=== PATIENT | female | born 1950 | race Caucasian/White ===

== ENCOUNTER → 2018-09-09 07:55 | Outpatient (CLI) | payer MEDICARE, OTHER, SELFPAY ==
--- NOTE | 2018-09-09 08:10 | DI.CT.S_ITS ---
PROCEDURE: CT CHEST ABD PEL W CON INDICATIONS: Abnormal weight loss TECHNIQUE: After the administration of oral and intravenous contrast, 5 mm thick sections acquired from the lung apices to the symphysis. 5 mm coronal and sagittal reformats were performed, with additional 7 mm coronal MIP reformats through the lungs. For radiation dose reduction, the following was used: automated exposure control, adjustment of mA and/or kV according to patient size. COMPARISON: None. FINDINGS: Image quality: Excellent. CHEST: Lungs and pleura: There is subpleural scarring in the lung apices. There are multiple small peripheral subpleural nodules bilaterally with the largest measuring up to approximately 3 mm. No pleural effusions or pneumothorax. Central and peripheral airways appear patent and normal in caliber. Mediastinum: Heart size is normal. No pericardial effusion. No mediastinal or hilar adenopathy by size criteria. Thoracic aorta and central pulmonary arteries are normal in size. Esophagus is normal in caliber. No hiatal hernia. Chest wall: No axillary or supraclavicular adenopathy by size criteria. Thyroid gland demonstrates no discrete nodules. ABDOMEN: Solid organs: There is a cyst peripherally in the right hepatic lobe measuring up to 2.8 cm. There are a few small additional hypodense foci within the liver which are too small to characterize but likely represent cysts. The gallbladder appears within normal limits without calcified gallstones. Biliary system is non-dilated. Pancreas enhances normally. No peripancreatic fat stranding or fluid collections. No pancreatic duct dilatation. The spleen is normal in size. No adrenal nodules. Kidneys demonstrate no hydronephrosis. 3 small bilateral renal cysts. Peritoneum and bowel: There is mild segmental wall thickening in the terminal ileum with minimal fat stranding. Bowel loops otherwise demonstrate normal wall thickness and caliber. The appendix is normal in appearance. No free fluid or air. Nodes and vessels: No retroperitoneal or mesenteric adenopathy by size criteria. Aorta and inferior vena cava are normal in size. Miscellaneous: No ventral hernias. PELVIS: Genitourinary: Bladder wall thickness is normal. Miscellaneous: No inguinal hernias or adenopathy. Bones: No suspicious bony lesions. No vertebral body compression fractures. IMPRESSION: 1. Mild segmental wall thickening in the terminal ileum without associated obstruction. The findings are suggestive of a mild enteritis secondary to infection such as from Yersinia or inflammation such as from inflammatory bowel disease. Recommend correlation clinically. 2. Scattered small bilateral subpleural nodules measuring up to 3 mm. The findings are nonspecific and likely represent a mild infectious or inflammatory process. Dictated by: Ari Zhao M.D. on 09/09/2018 at 11:54 Approved by: Ari Zhao M.D. on 09/09/2018 at 12:11
== END ==
PROVIDERS: Family Provider Family Medicine; PCP Family Medicine; Visit Provider Family Medicine
DX: R63.4 Abnormal weight loss (principal); N13.30 Unspecified hydronephrosis; N28.1 Cyst of kidney, acquired
CPT/HCPCS: 71260; 74177; Q9967

== ENCOUNTER → 2018-09-28 12:30 | Outpatient (CLI) | payer MEDICARE, OTHER, SELFPAY | PROVIDERS: PCP Family Medicine; Visit Provider Family Medicine | DX: Z78.0 Asymptomatic menopausal state (principal); M85.89 Other specified disorders of bone density and structure, multiple sites; M89.9 Disorder of bone, unspecified; M85.88 Other specified disorders of bone density and structure, other site | CPT/HCPCS: 77080 ==

== ENCOUNTER → 2022-04-30 09:51 | Outpatient (CLI) | payer MEDICARE, OTHER, SELFPAY ==
--- NOTE | 2022-04-30 | DI.RAD.S_ITS ---
PROCEDURE: XR LUMBAR SPINE 2-3V INDICATIONS: Other low back pain TECHNIQUE: 3 views of the lumbar spine were acquired. COMPARISON: None. FINDINGS: Bones: Normal bone mineralization. Disc space narrowing hypertrophic facet joints present throughout the exam, particularly in the lower lumbar spine. Grade 2 anterior spondylolisthesis present at L4-5 Soft tissues: Overlying bowel gas pattern is normal. No suspicious soft tissue calcifications. IMPRESSION: Degenerative grade 2 anterior spondylolisthesis L4-5 Degenerative disc disease and arthropathy Approved by: Kwaku Mackey M.D. on 04/30/2022 at 12:10
== END ==
PROVIDERS: PCP Family Medicine; Referring Provider Family Medicine; Visit Provider Family Medicine
DX: M43.16 Spondylolisthesis, lumbar region (principal); M47.816 Spondylosis without myelopathy or radiculopathy, lumbar region; M51.36 Other intervertebral disc degeneration, lumbar region; M54.59 Other low back pain
CPT/HCPCS: 72100

== ENCOUNTER → 2022-12-06 12:50 | Outpatient (CLI) | payer MEDICARE, OTHER, SELFPAY ==
--- NOTE | 2022-12-06 12:52 | DI.CT.S_ITS ---
PROCEDURE: CT ABDOMEN PELVIS W CON INDICATIONS: Epigastric pain// TECHNIQUE: After the administration of oral and intravenous contrast, axial sections were acquired from the lung bases to the pubic symphysis. Coronal and sagittal reformats were performed. For radiation dose reduction, the following was used: automated exposure control, adjustment of mA and/or kV according to patient size. COMPARISON:[facility], CT, CT CHEST ABD PEL W CON, 09/09/2018, 9:11. FINDINGS: Image quality: Good Lower chest: Scattered scarring and atelectasis. Small hiatal hernia. Mild hyperemia of the distal esophageal mucosa. Solid organs: A right lobe liver cyst is again seen. Subcentimeter lesions are too small to characterize, probably also cysts. Gallbladder is unremarkable. No pathologic dilation of the biliary system or pancreatic duct. No splenomegaly. No adrenal nodules. Bosniak 1 and 2 renal lesions are present, for which no dedicated followup is necessary per 2019 proposed guidelines. No hydronephrosis. Vessels and lymph nodes: The main portal vein is patent. No abdominal aortic aneurysm. No pathologic lymph nodes by size criteria. Bowel and peritoneum: Moderate fecal loading. No small bowel obstruction. No pathologic ascites. No drainable abscess. Mild gastric wall thickening. Body wall: Tiny fat containing umbilical hernia. Pelvis: Reproductive organs appear physiologic, but are not well evaluated on CT. Bladder is unremarkable. Bones: Degenerative changes, no acute or suspicious osseous finding. Small bone lesions with sclerotic appearance, probably bone islands. Lower lumbar anterolisthesis again seen. IMPRESSION: Possible mild gastric wall thickening, probably infectious or inflammatory gastritis. Possible small hiatal hernia and distal esophageal hyperemia, most commonly reflux esophagitis. Consider endoscopic correlation if needed. Otherwise, no acute abdominal pelvic abnormality. Other findings as above. Dictated by: Roel Ryan M.D. on 12/06/2022 at 15:24 Approved by: Roel Ryan M.D. on 12/06/2022 at 15:30
[2022-12-06 13:18] LABS: Estimated Glomerular Filt Rate > 60 mL/min (>60)
== END ==
PROVIDERS: Radiology Diagnostic Radiology; PCP Family Medicine; Referring Provider Family Medicine; Visit Provider Family Medicine
DX: R10.13 Epigastric pain (principal); K08.409 Partial loss of teeth, unspecified cause, unspecified class
CPT/HCPCS: 36415; 74177; 82565; Q9967

== ENCOUNTER 2023-04-17 10:28 | Day surgery (SDC) | payer MEDICARE, OTHER, SELFPAY ==
--- NOTE | 2023-04-17 | PATH_ITS ---
[facility] Accession Number: [id number] No. of containers..04 Tissue . 01 Material submitted: . PART A: duodenum bulb - DUODNEAL BULB PART B: stomach - ANTRUM PART C: gastrointestinal site - GASTRIC BODY PART D: colon - ASCENDING POLYPS . 01 Diagnosis: A. DUODENAL BULB, BIOPSY: Duodenal mucosa with gastric heterotopia. No evidence of celiac disease. See comment. . B. ANTRUM, BIOPSY: Gastric mucosa with mild chronic inflammation and focal epithelial stromal changes consistent with erosion. No Helicobacter pylori organisms identified on immunohistochemical evaluation. No intestinal metaplasia, dysplasia, or malignancy. . C. GASTRIC BODY, BIOPSY: Gastric mucosa with mild chronic inflammation and focal epithelial stromal changes consistent with erosion. No Helicobacter pylori organisms identified on immunohistochemical evaluation. No intestinal metaplasia, dysplasia, or malignancy. . D. ASCENDING COLON POLYPS, BIOPSY: Tubular adenoma. Additional colonic mucosa with no significant diagnostic alterations. [facility] 04/22/2023 1316 Local . 01 Comment: A. The presence of gastric glands in the duodenal mucosa may present as a nodule endoscopically. It may also be metaplastic due to ongoing peptic injuury or a congenital heterotopic process. . 01 Electronically signed: . Karmen Marquez MD, Pathologist NPI- [id number] . 01 Gross description: . Part A: DUODNEAL BULB: Received in formalin is 2 fragment(s) of lopes, soft tissue measuring 0.2 x 0.1 x 0.1 cm to 0.1 x 0.1 x 0.1 cm submitted entirely in 1 cassette(s) Part B: ANTRUM: Received in formalin is multiple fragment(s) of lopes, soft tissue measuring 0.5 x 0.5 x 0.1 cm in aggregate submitted entirely in 1 cassette(s) Part C: GASTRIC BODY: Received in formalin is 2 fragment(s) of lopes, soft tissue measuring 0.3 x 0.2 x 0.1 cm to 0.2 x 0.2 x 0.1 cm submitted entirely in 1 cassette(s) Part D: ASCENDING POLYPS: Received in formalin is 3 fragment(s) of lopes, soft tissue measuring 0.3 x 0.1 x 0.1 cm to 0.2 x 0.1 x 0.1 cm submitted entirely in 1 cassette(s) /AAY 04/18/2023 0455 Local . 01 Microscopic: . B. An immunohistochemical stain was performed to evaluate for Helicobacter organisms and is negative. The control stain showed appropriate reactivity. . C. An immunohistochemical stain was performed to evaluate for Helicobacter organisms and is negative. The control stain showed appropriate reactivity. . . * This test was developed and its performance characteristics determined by [facility]. It has not been cleared or approved by the U.S. Food and Drug Administration. The FDA has determined that such clearance or approval is not necessary. This test is used for clinical purposes. It should not be regarded as investigational or for research. . 01 Pathologist provided ICD-10: K31.89, K29.70, K25.0, D12.2 . 01 CPT . 868577, 002051, 516088, 901616, [id number], [id number] Specimen Comment: A courtesy copy of this report has been sent to [phone] Performed at: [facility] [address] [place] [address] [address] [facility], [place], [place] [id number] MD Ari Pettit MD Phone: [phone]
[2023-04-17 10:43] VITALS: BMI 19.2
[2023-04-17 10:58] VITALS: BP 180/80; PULSE 68; RESP 16; TEMP 36.8; O2SAT 100
--- NOTE | 2023-04-17 11:14 | P.HP_ITS ---
History of Present Illness History of Present Illness Date Patient Seen: 04/17/23 Time Patient Seen: 11:14 Chief complaint: Screening Colonoscopy Narrative: Chasity a 72-year-old woman who presents with abdominal pain. She had a recent CT scan that showed some questionable thickening of the wall of the stomach. She is also due for a screening colonoscopy. [facility] Medical History (Updated 01/27/23 @ 10:27 by Allen Thomas MD) Hypertension Spondylolisthesis Arthritis Surgical History (Updated 06/24/17 @ 05:32 by Conversion Provider) Status post breast lumpectomy Status post tubal ligation History of third molar tooth extraction Family History (Updated 01/27/23 @ 10:08 by Saima Murphy RN) Father Cancer Heart disease Mother Cancer Grandmother Cancer Social History Smoking Status: Never smoker alcohol intake: current Meds Home Medications and Allergies Home Medications Medication Instructions Recorded Confirmed Type losartan 25 mg tablet 25 mg PO DAILY 01/27/23 01/27/23 History rosuvastatin 10 mg tablet 10 mg PO DAILY 01/27/23 01/27/23 History sodium sul 1.479 gram-potas ch See Rx Instructions PO PER PKG DIR 04/08/23 Rx 0.188 gram-magnes sul 0.225 gram #24 tabs tablet (Sutab) Allergies Allergy/AdvReac Type Severity Reaction Status Date / Time No Known Drug Allergies Allergy Unverified 01/27/23 10:02 Exam Vital Signs (past 8 hours): - 04/17/23 10:58 Temperature 98.2 F Pulse Rate 68 Respiratory Rate 16 Blood Pressure 180/80 H Pulse Oximetry 100 Oxygen Delivery Method Room Air Oxygen Delivery Method Room Air Const General: healthy appearing Assessment & Plan Assessment and plan (1) Colon cancer screening: Status: Acute (2) Abnormal CT of the abdomen: Status: Acute Plan Chasity is a 72-year-old woman with abnormal imaging and abdominal pain who is due for a screening colonoscopy. We reviewed the risks and benefits of EGD and colonoscopy and she would like to proceed.
--- NOTE | 2023-04-17 12:05 | PM.OP.EC ---
Operative Date/Time/Diagnoses Date of procedure: 04/17/23 Time of procedure: 12:05 Pre-op diagnosis: Abnormal imaging, dyspepsia and colon cancer screening Post-op diagnosis: same Procedure & Clinicians Study performed: EGD and colonoscopy Same procedure as scheduled: Yes Surgeon: Allen Thomas Procedure Notes Procedure in detail: Surgeon: Allen Thomas MD Anesthesia: Jac Salcedo MD Procedure in detail: A timeout was performed. A bite blocked was placed and monitors were attached to the patient. The patient was positioned in the left lateral decubitus position. Sedation was administered. Once the patient was sedated the endoscope was inserted through the bite block and passed through the esophagus and stomach and into the duodenum. The duodenal bulb demonstrated some small ulcerations random biopsies were taken from the duodenal bulb mucosa with cold forceps. We then withdrew the scope into the stomach. There was antritis and evidence several small antral ulcers in the antrum and body of the stomach that appeared to have been bleeding recently. Biopsies were taken from the antrum and the body of the stomach with cold forceps. The endoscope was retroflexed and no hiatal hernia was seen. The endoscope was straightned and withdrawn into the esophagus. No other abnormalities were found. EGD findings: Gastritis, antritis and duodenitis with some small shallow bleeding ulcers Next we repositioned the patient for a colonoscopy. A digital rectal exam was performed and was normal. The colonoscope was inserted and advanced to the cecum. The appendiceal orifice was identified and photographed. The scope was slowly withdrawn over greater than 6 minutes. There were 3 small polyps in the ascending colon all less than 1 cm removed with cold snare and sent together. The scope was retroflexed in the rectum and no other abnormalities were seen. Colonoscopy findings: 3 small polyps in the ascending colon Total procedural EBL: 10 mL Scope withdrawal time: 11 minutes Sedation minutes: 32 minutes Post-procedure Disposition: PACU
[2023-04-17 12:08] VITALS: BP 103/38; PULSE 59; RESP 16; TEMP 36.2; O2SAT 98
[2023-04-17 12:11] VITALS: BP 96/42; PULSE 66; RESP 14; O2SAT 100
[2023-04-17 12:18] VITALS: BP 109/50; PULSE 61; RESP 15; O2SAT 99
== END 2023-04-17 12:51 | disposition home or self-care (01) ==
PROVIDERS: PCP Family Medicine; Referring Provider Surgery; Visit Provider Surgery
PROC: 0DJ08ZZ Inspection of Upper Intestinal Tract, Via Natural or Artificial Opening Endoscopic (ICD-10-PCS; CPT 43235; principal; 2023-04-17 11:15)
PROC: 0DJD8ZZ Inspection of Lower Intestinal Tract, Via Natural or Artificial Opening Endoscopic (ICD-10-PCS; CPT 45378; 2023-04-17 11:15)
DX: Z12.11 Encounter for screening for malignant neoplasm of colon (principal); R10.13 Epigastric pain; K29.50 Unspecified chronic gastritis without bleeding; D12.2 Benign neoplasm of ascending colon; K29.81 Duodenitis with bleeding
CPT/HCPCS: 45385; 43239; J2704

== ENCOUNTER → 2023-04-28 12:25 | Outpatient (CLI) | payer MEDICARE, OTHER, SELFPAY ==
[2023-04-29 09:54] LABS: Interpretation Negative (Negative)
== END ==
PROVIDERS: PCP Family Medicine; Referring Provider Surgery; Visit Provider Surgery
DX: R10.13 Epigastric pain (principal)
CPT/HCPCS: 83013; 99214

== ENCOUNTER → 2024-07-30 11:30 | Outpatient (CLI) | payer MEDICARE, OTHER, SELFPAY ==
--- NOTE | 2024-07-30 11:31 | DI.RAD.S_ITS ---
PROCEDURE: XR LUMBAR SPINE MIN 4V INDICATIONS: Low back pain, unspecified TECHNIQUE: 5 views of the lumbar spine were acquired, including bilateral oblique views. COMPARISON: None. FINDINGS: Bones: 5 nonrib-bearing vertebrae are present. Trace levoconvex curvature. Grade 1-2 anterolisthesis of L4 on L5 and L5 on S1. No vertebral body compression fractures. No suspicious bony lesions. Multilevel disc space narrowing and degenerative endplate changes. Multilevel facet hypertrophy. Generalized osteopenia. Soft tissues: Overlying bowel gas pattern is normal. No suspicious soft tissue calcifications. Oblique images: No pars defects. Lower lumbar levels are partially obscured by superimposed osseous structures, but no definite pars defects are seen at these levels. IMPRESSION: 1. Grade 1-2 anterolisthesis of L4 on L5 and L5 on S1, likely secondary to facet hypertrophy as no definite pars defects are seen on oblique views. 2. Moderate lumbar spondylosis. Approved by: Higinio Link M.D. on 07/30/2024 at 12:45
== END ==
PROVIDERS: PCP Family Medicine; Referring Provider Family Medicine; Visit Provider Family Medicine
DX: M47.816 Spondylosis without myelopathy or radiculopathy, lumbar region (principal); M43.16 Spondylolisthesis, lumbar region; M43.17 Spondylolisthesis, lumbosacral region; M54.50 Low back pain, unspecified; G89.29 Other chronic pain
CPT/HCPCS: 72110